=== PATIENT | female | born 1960 | race Caucasian/White ===

== ENCOUNTER 2016-09-10 09:26 | Emergency (ER) | payer OTHER ==
--- NOTE | ~2016-09-10 | ER ---
PATIENT'S NAME: AMINATA HOOK [facility] AGE: 55 Y [address] ROOM: [place] [address] LOCATION: [facility] ADMIT DATE: 09/10/2016 ER/Outpatient Report DISCHARGE DATE: 09/10/2016 FAMILY PHYSICIAN: Dary Gonsalez MD ATTENDING PHYSICIAN: Jack Ball CHIEF COMPLAINT: Left hand pain. HISTORY OF PRESENT ILLNESS: The patient presented to Dr. Gonsalez this morning who was concerned for compartment syndrome of the left wrist and hand and sent her over here. Dr. Gonsalez did receive and obtained labs prior to arrival which were notable for a white count of 6.3, hemoglobin 13.5, and platelets of 103 with ESR below threshold and CRP of 0.14. Sodium 139, potassium 4.0, chloride 110, CO2 is 21, BUN is 13, and creatinine 0.75. LFTs are grossly unremarkable other than a total bilirubin of 1.4. By report, x-rays were taken and were unremarkable, but I have not seen them. The patient has not received anything for her pain, to my knowledge. She is otherwise okay. 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 She intermittently gets some tingling in her left hand while driving as well. She denies any other rapid alternating movements such as being a keyboardist or a non garment sewing machine operator. No other acute findings. No trauma, but she does report some swelling to the wrist. It is particularly worse since last night. PAST MEDICAL HISTORY: Documented on the record and reviewed by me. SOCIAL HISTORY: Documented on the record and reviewed by me. MEDICATIONS: Documented on the record and reviewed by me. ALLERGIES: DOCUMENTED ON THE RECORD AND REVIEWED BY ME. REVIEW OF SYSTEMS: All systems were reviewed and negative except as noted in the HPI. PHYSICAL EXAMINATION: Notable for the following: VITAL SIGNS: Blood pressure 143/84, pulse 84, respiratory rate 17, temperature 99.2, and SpO2 is 99% on room air. Pain is mild by report. GENERAL: Age-appropriate female with happy appearance, sitting upright on the PATIENT'S NAME: AMINATA HOOK [facility] AGE: 55 Y [address] ROOM: [place] [address] LOCATION: ED ADMIT DATE: 09/10/2016 ER/Outpatient Report DISCHARGE DATE: 09/10/2016 FAMILY PHYSICIAN: Dary Gonsalez MD ATTENDING PHYSICIAN: Jack Ball exam table, in no obvious pain or distress. NEUROLOGIC: GCS 15. HEENT: Normal to inspection. CHEST: Even and unlabored respirations. Pulse is regular. ABDOMEN: Normal to inspection. EXTREMITIES: Notable for minimal swelling over the volar aspect of the left wrist. The hand has delayed capillary refill in the fingers, but they are very cold. This markedly improved with warming. Sensation is reported to be diminished, though no deficits can be appreciated. 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 Dopplerable pulses of the radial and ulnar pulses as well as the superficial and deep palmar arch, and digital arteries are all present and biphasic or triphasic. There is no pain with passive or active stretch of the hand. There is only tenderness to palpation over the carpal tunnel. There is some tingling reproduced with tapping over the carpal tunnel on the left. The remainder of the extremities are unremarkable. LABS AND X-RAYS: Not obtained during this visit. IMPRESSION: Likely carpal tunnel syndrome of the left wrist, not consistent with compartment syndrome. EMERGENCY DEPARTMENT COURSE: The patient was evaluated as above. Dr. Hernandez's PA did evaluate the patient in the emergency department. We are in agreement that this is not compartment syndrome based on the duration, presentation, lack of deformity or injury, and no other acute findings. Recommending antiinflammatories for symptom management moving forward. The patient was started on some Celebrex by the orthopedics team. Flexor tendon injury is considered, but felt to be less likely as well. She was given appropriate followup instructions for Dr. Hernandez's office, to be seen if worsening as needed. All questions were answered, and the patient was discharged in good condition. MD JULIANE YE/margiel /[id number] d: 09/10/16 1259 t: 03/13/17 1801, OUTPATIENT REPORT
== END 2016-09-10 10:15 | disposition disaster alternative care site (69) ==
LOC: GMED 09:26
DX: M25.532 Pain in left wrist (principal)